=== PATIENT | female | born 1960 | race Caucasian/White ===

== ENCOUNTER 2022-04-24 19:04 | Emergency (ER) | payer OTHER, SELFPAY ==
--- NOTE | 2022-04-24 19:14 | ED.FEMALEGU ---
HPI - Female Genitourinary General Chief complaint: Urogenital-Female Stated complaint: Thinks kidney infection Time Seen by Provider: 04/24/22 19:14 Source: patient Mode of arrival: Ambulatory Limitations: no limitations History of Present Illness HPI Narrative: This is a 62-year-old female with history of asthma, fibromyalgia and diabetes. Patient states she is had dysuria, urgency and frequency for the past day, she had a tele visit was prescribed Macrobid she would her 1st dose at 5:30 p.m. this evening but then started having some lower flank pain and presents to the ER. She denies fevers or chills. No new cold cough or congestion. No increasing chest pain or shortness of breath. No nausea or vomiting. Patient denies any new changes to bowel movement she states she often has diarrhea alternating with constipation. No black or bloody stools. No vaginal bleeding or discharge. Patient has a sense of incomplete emptying with her bladder, frequency, urgency and stress incontinence. Patient also notes that she has a large bruise on her left arm that she would like checked out. She states she lives in an cabinet that she asked to open and hold up fell onto her left forearm about a week ago, was stuck for a couple minutes before she could lifted up she had very large bruise and lump the bruise is starting to go away but the lump while getting smaller is not going away as quickly. She states she would trouble moving her fingers for a couple minutes initially afterwards but has normal movement and sensation since. Patient states she does not tolerate pain medications well. She is given a prescription for Macrobid 100 mg b.i.d. for 5 days, she has had 1 dose. Related Data Previous Rx's Medication Instructions Recorded nitrofurantoin 100 mg PO BID #10 caps 04/24/22 monohydrate/macrocrystals 100 mg capsule (Macrobid) phenazopyridine 100 mg tablet 100 mg PO TID PRN pain #6 tabs 04/24/22 (Pyridium) Review of Systems Review of Systems ROS Unobtainable: All systems reviewed & are unremarkable except as noted in HPI and below Exam Narrative Exam Narrative: GENERAL: Alert and oriented x three, female in mild distress. Patient is sitting in chair. HEENT: Head normocephalic, atraumatic, EOMI, pupils reactive, face symmetric, moist mucous membranes NECK: Supple, full range of motion CARDIOVASCULAR: Regular rate and rhythm without murmurs, rubs or gallops. RESPIRATORY: Breath sounds equal bilaterally, no wheezes rales or rhonchi. ABDOMEN: Soft, nontender. Normoactive bowel sounds all 4 quadrants. No guarding or rebound, rigidity, no mass : No CVA tenderness EXTREMITIES: Normal range of motion, no clubbing or edema. Neurovascularly intact. Patient has large area of swelling that is firm that is purple discoloration over the underside of the forearm surrounded by ecchymosis that is greenish and starting to fade. Only very mildly tender to touch. Patient has normal range of motion. Normal sensation. 2+ radial pulses. No warmth, erythema, no bogginess or fluctuance. NEUROLOGICAL: Cranial nerves II through XII grossly intact. Moving all extremities SKIN: Warm, dry, no petechiae, no rashes or lesions. Initial Vital Signs Initial Vital Signs: Vital Signs Temperature 96.8 F L 04/24/22 19:15 Pulse Rate 80 04/24/22 19:15 Respiratory Rate 16 04/24/22 19:15 Blood Pressure 142/78 H 04/24/22 19:15 Pulse Oximetry 96 04/24/22 19:15 Oxygen Delivery Method 04/24/22 19:15 Course Orders Ordered: ED Orders 04/24/22 19:24 Urine Culture Stat Urine Microscopic Stat Vital Signs Vital signs: Vital Signs - 8 hr 04/24/22 19:15 Temperature 96.8 F L Pulse Rate 80 Respiratory Rate 16 Blood Pressure 142/78 H Pulse Oximetry 96 Oxygen Delivery Method Room Air MDM - Female Genitourinary Lab Data Labs: Lab Results 04/24/22 Range/Units 19:10 Urine RBC 30-100/hpf H (0-5/HPF) Urine WBC 10-30/hpf H (0-5/HPF) Ur Squamous Epith Cells 0-1 /hpf (0-5/HPF) Urine Bacteria Moderate (10-30) H (None) Urine Dip Bedside Urine Glucose 500 mg/dl Bedside Urine Bilirubin - Negative Bedside Urine Ketone ++ 40 Bedside Urine Occult Blood ++ Bedside Urine Protein + 30 Bedside Urine Urobilinogen - Negative Bedside Urine Nitrite - Negative Bedside Urine Leukocytes +/- 15 Esterase MDM Narrative Medical decision making narrative: This is a 62-year-old female with clinically UTI, she has ketones, leuks in her urine and no nitrates. Sent for micro. Discussed with patient because she is having some increased sling pain would give her maybe increased length of her prescription but have her continue her Macrobid this seems appropriate. Patient's change on her forearm appears to be a hematoma we discussed can do heat to the affected area but time will help to resolve this. Discharge Plan Departure Patient Disposition: Home Clinical Impression: Urinary tract infection Instructions: DI for Urinary Tract Infection (UTI) Activity Restrictions/Additional Instructions: Your urine today is suspicious for infection. Please continue the Macrobid, typically takes 24 hours to 48 hours for significant improvement of symptoms. A prescription to extend your macrobid for several more days is included. You can use azo or Pyridium 1 tablet every 8 hours as needed for burning or frequency and bladder spasm. This medication will make her urine bright orange. Prescription sent to [facility] in [place] Please return for fevers, rapidly worsening pain, persistent vomiting, inability to urinate or other new or concerning changes. Prescriptions: New nitrofurantoin monohyd/m-cryst [Macrobid] 100 mg capsule 100 mg PO BID Qty: 10 0RF Rx Instructions: must administer with a meal/food phenazopyridine [Pyridium] 100 mg tablet 100 mg PO TID PRN (Reason: pain) Qty: 6 0RF Referrals: Taylor Pérez PA-C [Primary Care Provider] - Visit Report Forms: Patient Portal/API
[2022-04-24 19:15] VITALS: BP 142/78; PULSE 80; RESP 16; TEMP 36; O2SAT 96; BMI 23.6
--- NOTE | 2022-04-24 19:49 | PC.NURSE ---
Patient was evaluated and discharged by provider prior to nursing assessment.
[2022-04-24 19:59] LABS: Bacteria Urine Moderate (10-30); RBC Urine 30-100/HPF (0-5/HPF); Squamous Epithelial Cell Urine 0-1 /HPF (0-5/HPF); WBC Urine 10-30/HPF (0-5/HPF)
== END 2022-04-24 19:50 | disposition home or self-care (01) ==
PROVIDERS: Emergency Provider Emergency Medicine; PCP Physician Assistant
DX: N39.0 Urinary tract infection, site not specified (principal); R10.30 Lower abdominal pain, unspecified
CPT/HCPCS: 81003; 81015; 87086; 99282

== ENCOUNTER 2023-01-20 17:16 | Emergency (ER) | payer OTHER, SELFPAY ==
[2023-01-20] VITALS (14 sets, daily range): BP systolic 127–173; BP diastolic 74–88; PULSE 58–70; RESP 11–30; TEMP 36.4–36.5; O2SAT 96–100; BMI 36.2
[2023-01-20 17:51] LABS: Add Manual Diff / Slide Review NO; Alanine Aminotransferase 40 IU/L (<35); Albumin 4.5 g/dL (3.5-5.0); Albumin Globulin Ratio 1.6 (1.0-2.8); Alkaline Phosphatase 50 U/L (38-126); Aspartate Aminotransferase 30 IU/L (14-36); BUN Creatinine Ratio 15.3 (6-22); Basophils Absolute Auto 100 /uL (0-100); Basophils Percent Auto 1.3 % (0-2); Blood Urea Nitrogen 13 mg/dL (7-17); Calcium 9.6 mg/dL (8.4-10.2); Carbon Dioxide 19 mmol/L (22-32); Chloride 108 mmol/L (98-107); Eosinophils Absolute Auto 200 /uL (0-450); Eosinophils Percent Auto 2.8 % (2-4); Estimated Glomerular Filt Rate > 60 mL/min (>60); Globulin 2.9 g/dL (1.7-4.1); Glucose 189 mg/dL (80-110); HEMOLYSIS 15 (0-50); Hematocrit 44.2 % (36-46); Hemoglobin 15.1 g/dL (12.0-16.0); Lipase 121 U/L (23-300); Lymphocytes Absolute Auto 2600 /uL (1100-4500); Lymphocytes Percent Auto 37.1 % (25-40); Mean Corpuscular Hemoglobin 26.4 PG (26-34); Mean Corpuscular Volume 77.6 fL (80-100); Monocytes Absolute Auto 400 /uL (0-900); Monocytes Percent Auto 6.3 % (3-14); Neutrophils Absolute Auto 3700 /uL (1500-7000); Neutrophils Percent Auto 52.5 % (50-75); Platelet Count 212 X10^3/uL (150-400); Potassium 3.7 mmol/L (3.4-5.1); Red Cell Distribution Width 13.5 % (11.6-14.8); Sodium 139 mmol/L (137-145); Total Protein 7.4 g/dL (6.3-8.2); White Blood Cell Count 7.1 X10^3/uL (4.5-11.0)
[2023-01-20 18:07] LABS: Ethanol (ETOH) < 10 mg/dL
--- NOTE | 2023-01-20 18:12 | ED_ITS ---
HPI - General Adult General Chief complaint: Weakness Stated complaint: Dizzy/Weak Time Seen by Provider: 01/20/23 17:37 Source: patient and EMS Mode of arrival: EMS History of Present Illness HPI narrative: 62-year-old female nonsmoker with fibromyalgia presents by EMS for evaluation of generalized fatigue and dizziness that is worse than normal. She states that she is been having troubles very similar to this more often than not so she had COVID in 2021. She frequently has headaches and dizziness and is generally fatigued. She has seen her doctors on multiple occasions and is scheduled for an outpatient MRI. She states that she just felt a bit worse than normal today's of wanted to get checked out. She has a generalized headache that is about a 3/10. There is no obvious provocation or palliation. She denies blurred vision or trouble with speech. She denies any neck or back pain and has had no fever or chills. She denies any trauma or injury and takes no blood thinners. She denies chest pain or shortness of breath. She is had a bit of a poor appetite. She becomes fatigued with much exertion and is a bit dizzy when she stands. Related Data Previous Rx's Medication Instructions Recorded nitrofurantoin 100 mg PO BID #10 caps 04/24/22 monohydrate/macrocrystals 100 mg capsule (Macrobid) phenazopyridine 100 mg tablet 100 mg PO TID PRN pain #6 tabs 04/24/22 (Pyridium) Review of Systems Review of Systems Narrative: GENERAL: See HPI HEENT: Denies sinus pain, ear pain, sore throat, difficulty swallowing, dizziness. RESPIRATORY: Denies dyspnea, cough, wheezing, hemoptysis, sputum. CARDIOVASCULAR: Denies chest pain, palpitations, orthopnea, edema, GASTROINTESTINAL: Denies nausea, vomiting, abdominal pain, diarrhea, constipation, melena. : Denies dysuria, frequency, incontinence, hematuria, urinary retention. MUSCULOSKELETAL: denies weakness, joint pain, or bony pain SKIN: Denies rash, skin lesions, or other NEUROLOGIC: See HPI PSYCHIATRIC: No concerning psychosocial issues. 12 point review of systems is negative except for those stated above Patient History Social History Smoking Status: Never smoker Smoking Status: Never smoker alcohol intake frequency: other Substance Use Type: does not use Exam Narrative Exam Narrative: GENERAL: [62] year old patient appears stated age. Well-developed patient, in mild distress. HEAD: Atraumatic. Normocephalic. EYES: Pupils equal round and reactive. Extraocular motions intact. No scleral icterus. No injection or drainage. ENT: Nose without bleeding, purulent drainage. Throat without erythema, tonsillar hypertrophy or exudate. Airway patent. NECK: Trachea midline. Non tender, no meningeal signs CARDIOVASCULAR: Regular rate and rhythm without murmurs, gallops, or rubs. RESPIRATORY: Clear to auscultation. Breath sounds equal bilaterally. No wheezes, rales, or rhonchi. GASTROINTESTINAL: Abdomen soft, non-tender, nondistended. EXTREMITIES: No edema or joint tenderness. BACK: Nontender without deformity or crepitance. No flank tenderness. NEURO: AOx3. SKIN: No rash or erythema of visible areas NIH Stroke Scale 1a. LOC: Patient is alert and keenly responsive (0) 1b. LOC Questions: Patient answers both LOC questions accurately (0) 1c. LOC Commands: Patient performs both tasks correctly (0) 2. Best Gaze: Normal (0) 3. Visual: No visual loss (0) 4. Facial palsy: Normal symmetrical movements (0) 5. Motor arm: No drift (0) 6. Motor leg: No drift (0) 7. Limb ataxia: Absent (0) 8. Sensory: Normal (0) 9. Best language: No aphasia; normal (0) 10. Dysarthria: Normal (0) 11. Extinction and inattention: No abnormality (0) NIHSS: 0 Initial Vital Signs Initial Vital Signs: Vital Signs Temperature 97.7 F 01/20/23 17:20 Pulse Rate 68 01/20/23 17:20 Respiratory Rate 30 H 01/20/23 17:20 Blood Pressure 132/88 01/20/23 17:20 Pulse Oximetry 100 01/20/23 17:20 Oxygen Delivery Method Room Air 01/20/23 17:20 Course Orders Ordered: ED Orders 01/20/23 21:22 CT head/brain wo con Stat Discontinued Medications Sodium Chloride (Normal Saline 0.9%) 1,000 mls @ 1,000 mls/hr IV BOLUS PRN PRN Reason: Fluid replacement Last Infusion: 01/20/23 22:35 Dose: 0 mls/hr Documented By: Admin: 09/14/23 21:36 Dose: 1,000 mls/hr Documented By: JOMAR Ketorolac Tromethamine (Ketorolac 30 Mg/Ml Vial) 15 mg IV NOW ONE Stop: 01/20/23 21:23 Last Admin: 01/20/23 21:35 Dose: 15 mg Documented By: JOMAR Vital Signs Vital signs: Vital Signs - 8 hr 01/20/23 19:30 01/20/23 19:30 01/20/23 20:00 Temperature Pulse Rate 69 Respiratory Rate 13 Blood Pressure 143/82 H 132/74 Pulse Oximetry 96 01/20/23 20:00 01/20/23 20:30 01/20/23 20:30 Temperature Pulse Rate 66 64 Respiratory Rate 11 L 14 Blood Pressure 127/75 Pulse Oximetry 98 98 01/20/23 21:00 01/20/23 21:00 01/20/23 21:30 Temperature Pulse Rate 63 61 Respiratory Rate 18 14 Blood Pressure 134/75 Pulse Oximetry 97 97 01/20/23 21:31 01/20/23 21:31 01/20/23 22:00 Temperature Pulse Rate 58 L 62 Respiratory Rate 26 H 12 Blood Pressure 163/77 H Pulse Oximetry 98 96 01/20/23 22:02 01/20/23 22:02 01/20/23 22:30 Temperature Pulse Rate 60 61 Respiratory Rate 14 12 Blood Pressure 173/83 H Pulse Oximetry 97 96 01/20/23 23:00 01/20/23 23:10 Temperature 97.6 F Pulse Rate 62 Respiratory Rate 14 Blood Pressure Pulse Oximetry 97 Medical Decision Making Lab Data 01/20/23 17:15 01/20/23 17:15 Labs: Lab Results 01/20/23 01/20/23 01/20/23 Range/Units 17:15 17:15 17:15 WBC 7.1 (4.5-11.0) X10^3/uL RBC 5.70 H (4.0-5.2) X10^6/uL Hgb 15.1 (12.0-16.0) g/dL Hct 44.2 (36-46) % MCV 77.6 L (80-100) fL MCH 26.4 (26-34) PG MCHC 34.0 (30-36) % RDW 13.5 (11.6-14.8) % Plt Count 212 (150-400) X10^3/uL Neut % (Auto) 52.5 (50-75) % Lymph % (Auto) 37.1 (25-40) % [place] % (Auto) 6.3 (3-14) % Eos % (Auto) 2.8 (2-4) % Baso % (Auto) 1.3 (0-2) % Neut # (Auto) 3700 (7054-5033) /uL Lymph # (Auto) 2600 (5750-7408) /uL [place] # (Auto) 400 (0-900) /uL Eos # (Auto) 200 (0-450) /uL Baso # (Auto) 100 (0-100) /uL Sodium 139 (137-145) mmol/L Potassium 3.7 (3.4-5.1) mmol/L Chloride 108 H (98-107) mmol/L Carbon Dioxide 19 L (22-32) mmol/L BUN 13 (7-17) mg/dL Creatinine 0.85 (0.52-1.04) mg/dL Estimated GFR > 60 (>60) mL/min BUN/Creatinine Ratio 15.3 (6-22) Glucose 189 H (80-110) mg/dL Calcium 9.6 (8.4-10.2) mg/dL Total Bilirubin 1.0 (0.2-1.3) mg/dL AST 30 (14-36) IU/L ALT 40 H (<35) IU/L Alkaline Phosphatase 50 (38-126) U/L Total Creatine Kinase (30-135) U/L Troponin I (0.01-0.034) ng/mL Total Protein 7.4 (6.3-8.2) g/dL Albumin 4.5 (3.5-5.0) g/dL Globulin 2.9 (1.7-4.1) g/dL Albumin/Globulin Ratio 1.6 (1.0-2.8) Lipase 121 (23-300) U/L U Opiates 300ng/mL cut (Negative) Ur Oxycodone Screen (Negative) Urine Methadone Screen (Negative) Ur Barbiturates Screen (Negative) U Tricyclic Antidepress (Negative) Ur Phencyclidine Scrn (Negative) Ur Amphetamines Screen (Negative) U Methamphetamines Scrn (Negative) Ur MDMA Scrn (Ecstasy) (Negative) U Benzodiazepines Scrn (Negative) Urine Cocaine Screen (Negative) U Marijuana (THC) Screen (Negative) Ethyl Alcohol < 10 ( - 10) mg/dL 01/20/23 01/20/23 Range/Units 17:30 17:38 WBC (4.5-11.0) X10^3/uL RBC (4.0-5.2) X10^6/uL Hgb (12.0-16.0) g/dL Hct (36-46) % MCV (80-100) fL MCH (26-34) PG MCHC (30-36) % RDW (11.6-14.8) % Plt Count (150-400) X10^3/uL Neut % (Auto) (50-75) % Lymph % (Auto) (25-40) % [place] % (Auto) (3-14) % Eos % (Auto) (2-4) % Baso % (Auto) (0-2) % Neut # (Auto) (3660-1459) /uL Lymph # (Auto) (2385-6798) /uL [place] # (Auto) (0-900) /uL Eos # (Auto) (0-450) /uL Baso # (Auto) (0-100) /uL Sodium (137-145) mmol/L Potassium (3.4-5.1) mmol/L Chloride (98-107) mmol/L Carbon Dioxide (22-32) mmol/L BUN (7-17) mg/dL Creatinine (0.52-1.04) mg/dL Estimated GFR (>60) mL/min BUN/Creatinine Ratio (6-22) Glucose (80-110) mg/dL Calcium (8.4-10.2) mg/dL Total Bilirubin (0.2-1.3) mg/dL AST (14-36) IU/L ALT (<35) IU/L Alkaline Phosphatase (38-126) U/L Total Creatine Kinase 61 (30-135) U/L Troponin I < 0.012 (0.01-0.034) ng/mL Total Protein (6.3-8.2) g/dL Albumin (3.5-5.0) g/dL Globulin (1.7-4.1) g/dL Albumin/Globulin Ratio (1.0-2.8) Lipase (23-300) U/L U Opiates 300ng/mL cut Negative (Negative) Ur Oxycodone Screen Negative (Negative) Urine Methadone Screen Negative (Negative) Ur Barbiturates Screen Negative (Negative) U Tricyclic Antidepress Negative (Negative) Ur Phencyclidine Scrn Negative (Negative) Ur Amphetamines Screen Negative (Negative) U Methamphetamines Scrn Negative (Negative) Ur MDMA Scrn (Ecstasy) Negative (Negative) U Benzodiazepines Scrn Negative (Negative) Urine Cocaine Screen Negative (Negative) U Marijuana (THC) Screen Negative (Negative) Ethyl Alcohol ( - 10) mg/dL Urine Dip Bedside Urine Glucose 1000 mg/dl Bedside Urine Bilirubin - Negative Bedside Urine Ketone - Negative Urine Specific Leslie 1.01 Bedside Urine Occult Blood - Negative Bedside Urine pH 6.0 Bedside Urine Protein - Negative Bedside Urine Urobilinogen - Negative Bedside Urine Nitrite - Negative Bedside Urine Leukocytes - Negative Esterase Point of care testing: Urine Dip Bedside Urine Glucose 1000 mg/dl Bedside Urine Bilirubin - Negative Bedside Urine Ketone - Negative Urine Specific Leslie 1.01 Bedside Urine Occult Blood - Negative Bedside Urine pH 6.0 Bedside Urine Protein - Negative Bedside Urine Urobilinogen - Negative Bedside Urine Nitrite - Negative Bedside Urine Leukocytes - Negative Esterase MDM Narrative Medical decision making narrative: [62] year old patient presents with chronic headaches Headache considerations include, but not limited to: Subarachnoid hemorrhage, but unlikely as patient denies sudden onset of pain, not worst of life, or neck pain Meningitis considered, but thought unlikely given lack of Brudzinski's, Kernig's sign, altered mental status or fever Giant cell arteritis considered, but thought unlikely given lack of unilateral findings, pain in denominational, vision change HTN Emergency considered, but thought unlikely given normal vitals Other serious diagnoses considered unlikely given lack of red flag findings such as sudden onset, increasing frequency, immunocompromise, systemic signs (fever, chills, stiff neck, or rash), focal neurologic findings, trauma, blood thinners, etc. Prior Charts reviewed in our EMR Primary Historian: patient Labs reviewed and interpreted by myself: No significant lab abnormality Imaging reviewed: Head CT without acute findings Patient's symptoms improved over duration of stay with above-stated therapies. Findings and discharge diagnosis discussed with patient/family followed by verbalization of understanding Return precautions discussed with patient/family whom verbalize understanding of diagnosis and plan Discharge Plan Departure Patient Disposition: Home Clinical Impression: Fatigue, Weakness, Chronic headaches Activity Restrictions/Additional Instructions: *You have been diagnosed with [multiple symptoms, possibly consequence of long COVID syndrome. As we discussed your history and physical exam, labs and imaging are reassuring] *What to do: *Please continue to take your regular medications as directed. [ ] New medication prescriptions sent to your pharmacy: [ ] [ ] New medication written as a paper prescription [ ] No new medications given *Please follow up with your primary care provider in 2-3 days, call for an appointment. Let them know you were seen in the Emergency Department and that we ask that you be seen in follow up. We will electronically transmit a record of today's note if your PCP is in our system *If you do not have a primary care provider please contact the [facility] Resource line at [phone]. They will ask some questions about your medical history and help get you set up with a doctor in the community. *Return to Emergency Department if you should have any new, worsening or concerning symptoms, such as [fever greater than 101 F, shaking chills, worsening pain, persistent vomiting or other bothersome symptoms] Prescriptions: No Action nitrofurantoin monohyd/m-cryst [Macrobid] 100 mg capsule 100 mg PO BID Qty: 10 0RF Rx Instructions: must administer with a meal/food phenazopyridine [Pyridium] 100 mg tablet 100 mg PO TID PRN (Reason: pain) Qty: 6 0RF Referrals: Taylor Pérez PA-C [Primary Care Provider] - Stand Alone Forms: Patient Portal/API
[2023-01-20 18:13] LABS: UR Morphine/Opiate cutoff 300 Negative (Negative); Ur Creatinine Normal (Normal); Ur Specific Gravity Normal (Normal); Urine Amphetamines Negative (Negative); Urine Barbiturates Negative (Negative); Urine Benzodiazepines Negative (Negative); Urine Cocaine Negative (Negative); Urine MDMA Negative (Negative); Urine Methadone Negative (Negative); Urine Methamphetamines Negative (Negative); Urine Oxycodone Negative (Negative); Urine Phencyclidine Negative (Negative); Urine Tetrahydrocannabinol Negative (Negative); Urine Tricyclic Antidepressant Negative (Negative); Urine pH Normal (Normal)
[2023-01-20 18:18] LABS: Creatine Kinase 61 U/L (30-135)
[2023-01-20 18:31] LABS: Troponin I < 0.012 ng/mL (0.01-0.034)
--- NOTE | 2023-01-20 21:22 | DI.CT.S_ITS ---
PROCEDURE: CT HEAD/BRAIN WO CON INDICATIONS: headaches and dizziness TECHNIQUE: Noncontrast 4.5 mm thick angled axial sections acquired from the foramen magnum to the vertex, with coronal and sagittal reformats. For radiation dose reduction, the following was used: automated exposure control, adjustment of mA and/or kV according to patient size. COMPARISON: None. FINDINGS: Image quality: Excellent. CSF spaces: Basal cisterns are patent. No extra-axial fluid collections. Ventricles are normal in size and shape. Brain: No intracranial hemorrhage, mass, or mass effect. Bustamante-white matter interface appears preserved. Skull and face: Calvarium and visualized facial bones are intact, without suspicious lesions. Sinuses: Visualized sinuses demonstrate mild mucosal thickening within the ethmoid sinuses. Mastoid air cells are clear. IMPRESSION: 1. No acute intracranial abnormality. Dictated by: Kelvin Chandler M.D. on 01/20/2023 at 22:21 Approved by: Kelvin Chandler M.D. on 01/20/2023 at 22:22
[2023-01-20] MEDS: KETOROLAC 30 MG/ML VIAL 15 MG IV (21:35)
[2023-01-20] MEDS: SODIUM CHLORIDE 0.9% 1,000 ML 1000 ML IV (21:36)
== END 2023-01-20 23:11 | disposition home or self-care (01) ==
PROVIDERS: Emergency Medicine; Emergency Provider Emergency Medicine; PCP Physician Assistant
DX: R53.1 Weakness (principal); R53.83 Other fatigue; R51.9 Headache, unspecified
CPT/HCPCS: 36415; 70450; 80053; 80305; 80320; 81003; 82550; 83690; 84484; 85025; 93005; 93010; 96361; 96374; 99284; J1885

== ENCOUNTER 2023-11-30 15:21 | Emergency (ER) | payer OTHER, SELFPAY ==
[2023-11-30] VITALS (9 sets, daily range): BP systolic 119–154; BP diastolic 63–80; PULSE 87–97; RESP 13–23; TEMP 36.8; O2SAT 93–99; BMI 32.1
--- NOTE | 2023-11-30 15:28 | ED_ITS ---
HPI - General Adult General Chief complaint: Weakness Stated complaint: Weakness/N/N[place] Time Seen by Provider: 11/30/23 15:26 History of Present Illness HPI narrative: 63-year-old female presents by EMS from home for cough, congestion, generalized weakness. History of fibromyalgia. Symptoms began yesterday, worse today. Patient states she feels generally weak all over. Taking [id number] cough and cold medication for symptoms without significant relief. Related Data Previous Rx's Medication Instructions Recorded nitrofurantoin 100 mg PO BID #10 caps 04/24/22 monohydrate/macrocrystals 100 mg capsule (Macrobid) phenazopyridine 100 mg tablet 100 mg PO TID PRN pain #6 tabs 04/24/22 (Pyridium) Allergies Allergy/AdvReac Type Severity Reaction Status Date / Time No Known Drug Allergies Allergy Verified 11/30/23 15:52 Patient History Social History Smoking Status: Never smoker Smoking Status: Never smoker alcohol intake frequency: other Substance Use Type: does not use Exam Initial Vital Signs Initial Vital Signs: Vital Signs Temperature 98.3 F 11/30/23 15:27 Pulse Rate 94 H 11/30/23 15:27 Respiratory Rate 18 11/30/23 15:27 Blood Pressure 154/65 H 11/30/23 15:27 Pulse Oximetry 99 11/30/23 15:27 Oxygen Delivery Method Room Air 11/30/23 15:27 Const: Awake, alert, no acute distress Cardiac: regular rate, regular rhythm RESP: unlabored, clear bilaterally, no wheezing GI: Soft, nontender, nondistended, no rebound, no guarding MSK: Atraumatic, full range of motion, pulses equal Skin: Warm, Dry, intact, no rashes Neuro: AO x3, CN II-XII grossly intact, moves all extremities Course Orders Ordered: Discontinued Medications Sodium Chloride (Normal Saline 0.9%) 1,000 mls @ 1,000 mls/hr IV BOLUS ONE Stop: 11/30/23 16:26 Last Infusion: 11/30/23 17:43 Dose: Infused Documented By: Admin: 11/30/23 15:52 Dose: 1,000 mls/hr Documented By: RB Ketorolac Tromethamine (Ketorolac 30 Mg/Ml Vial) 15 mg IV NOW ONE Stop: 11/30/23 15:28 Last Admin: 11/30/23 16:09 Dose: 15 mg Documented By: DKTrae Vital Signs Vital signs: Vital Signs - 8 hr 11/30/23 15:27 Temperature 98.3 F Pulse Rate 94 H Respiratory Rate 18 Blood Pressure 154/65 H Pulse Oximetry 99 Oxygen Delivery Method Room Air Medical Decision Making Differential Diagnosis Differential Diagnosis: Viral syndrome, COVID, generalized weakness Lab Data 11/30/23 15:50 11/30/23 15:50 Labs: Lab Results 11/30/23 11/30/23 11/30/23 Range/Units 15:35 15:40 15:50 WBC 9.0 (4.5-11.0) X10^3/uL RBC 5.91 H (4.0-5.2) X10^6/uL Hgb 15.7 (12.0-16.0) g/dL Hct 46.7 H (36-46) % MCV 79.0 L (80-100) fL MCH 26.6 (26-34) PG MCHC 33.6 (30-36) % RDW 13.7 (11.6-14.8) % Plt Count 182 (150-400) X10^3/uL Neut % (Auto) 86.8 H (50-75) % Lymph % (Auto) 6.3 L (25-40) % [place] % (Auto) 6.3 (3-14) % Eos % (Auto) 0.1 L (2-4) % Baso % (Auto) 0.5 (0-2) % Neut # (Auto) 7800 H (6039-4042) /uL Lymph # (Auto) 600 L (6102-6190) /uL [place] # (Auto) 600 (0-900) /uL Eos # (Auto) 0 (0-450) /uL Baso # (Auto) 0 (0-100) /uL Sodium 139 (137-145) mmol/L Potassium 4.2 (3.4-5.1) mmol/L Chloride 107 (98-107) mmol/L Carbon Dioxide 18 L (22-32) mmol/L BUN 17 (7-17) mg/dL Creatinine 1.06 H (0.52-1.04) mg/dL Estimated GFR 58 L (>60) mL/min BUN/Creatinine Ratio 16.0 (6-22) Glucose 182 H (80-110) mg/dL Calcium 9.3 (8.4-10.2) mg/dL Total Bilirubin 1.5 H (0.2-1.3) mg/dL AST 29 (14-36) IU/L ALT 40 H (<35) IU/L Alkaline Phosphatase 64 (38-126) U/L Total Protein 8.1 (6.3-8.2) g/dL Albumin 5.0 (3.5-5.0) g/dL Globulin 3.1 (1.7-4.1) g/dL Albumin/Globulin Ratio 1.6 (1.0-2.8) Urine Color Yellow Urine Appearance Clear Urine pH 5.0 (4.5-8.0) Ur Specific [place] 1.010 (1.000-1.035) Urine Protein Negative (Negative) Urine Glucose (UA) 3+ H (Negative) g/dL Urine Ketones 3+ H (NEGATIVE) Urine Occult Blood 1+ H (Negative) Urine Nitrate Negative (Negative) Urine Bilirubin Negative (NEGATIVE) Urine Urobilinogen 0.2 (0.2) E.U./dL Ur Leukocyte Esterase Negative (NEGATIVE) Urine RBC 0-1/hpf D (0-5/HPF) Urine WBC 0-1/hpf (0-5/HPF) Ur Squamous Epith Cells 1-5 /hpf (0-5/HPF) Urine Bacteria Occasional (0-1) (None) Urine Mucus 1+ H (Negative) Ur Culture Indicated? Cult not indicated Vol Urine Centrifuged 10ml (spun) Chlamy pneumoniae PCR Not detected (Not Detect) Adenovirus (PCR) Not detected (Not Detect) B.parapertussis DNA PCR Not detected (Not Detecte) Coronavirus OC43 (PCR) Not detected (Not Detect) Coronavirus HKU1 (PCR) Not detected (Not Detect) Coronavirus 229E (PCR) Not detected (Not Detect) SARS-CoV-2 (PCR) Detected H (Not Detecte) Coronavirus NL63 (PCR) Not detected (Not Detect) Human Metapneumovir PCR Not detected (Not Detect) Influenza Type A (PCR) Not detected (Not Detect) Influenza Type B (PCR) Not detected (Not Detect) M. pneumoniae (PCR) Not detected (Not Detect) Parainfluenza 1 (PCR) Not detected (Not Detect) Parainfluenza 2 (PCR) Not detected (Not Detect) Parainfluenza 3 (PCR) Not detected (Not Detect) Parainfluenza 4 (PCR) Not detected (Not Detect) RSV (PCR) Not detected (Not Detect) Entero/Rhino (PCR) Not detected (Not Detect) Imaging Data Chest x-ray: Radiologist's Impression: PROCEDURE: XR CHEST 1V INDICATIONS: WEAKNESS, COUGH TECHNIQUE: One view of the chest was acquired. COMPARISON: Chest radiograph on June 21, 2023. FINDINGS: Surgical changes and devices: None. Lungs and pleura: Lungs are clear. No pleural effusions or pneumothorax. Mediastinum: Mediastinal contours appear normal. Heart size is normal. Bones and chest wall: No suspicious bony lesions. Overlying soft tissues appear unremarkable. IMPRESSION: No acute cardiopulmonary process. Dictated by: Taurus Perrin M.D. on 11/30/2023 at 16:43 Approved by: Tuarus Perrin M.D. on 11/30/2023 at 16:43 MDM Narrative Additional Information: Nontoxic patient presenting for generalized symptoms, cough and congestion. Physical exam is unremarkable. Toradol and IV fluids ordered. Laboratory work is reviewed, no significant abnormalities identified. Patient did test positive for COVID-19. Creatinine 1.06, up from 0.85 1 year prior. Urinalysis with 3+ ketones and 3+ glucose. No evidence of infection. Patient reassessed, she states she feels better after receiving Toradol and IV fluids. Patient counseled on her COVID-19 results, recommended continued fluid hydration, close follow up with PCP. Discharge Plan Departure Patient Disposition: Home Clinical Impression: Cough, COVID-19 Instructions: DI for Viral Upper Respiratory Infection -- Adult Activity Restrictions/Additional Instructions: Your laboratory work today showed that you may have some very mild dehydration, you has been given a L of IV fluids here. You did test positive for COVID-19, but your chest x-ray did not show any pneumonia or other concerning findings. Take Tylenol and ibuprofen as needed for pain or discomfort, make sure to stay hydrated by drinking plenty of fluids, follow up with your primary care doctor. Prescriptions: No Action nitrofurantoin monohyd/m-cryst [Macrobid] 100 mg capsule 100 mg PO BID Qty: 10 0RF Rx Instructions: must administer with a meal/food phenazopyridine [Pyridium] 100 mg tablet 100 mg PO TID PRN (Reason: pain) Qty: 6 0RF Referrals: Taylor Pérez PA-C [Primary Care Provider] - Stand Alone Forms: Patient Portal/API
[2023-11-30 15:45] LABS: Appearance Urine UA CLEAR; Bilirubin Urine UA NEGATIVE (NEGATIVE); Color Urine UA YELLOW; Glucose Urine UA 3+ g/dL (Negative); Ketones Urine UA 3+ (NEGATIVE); Leukocyte Esterase Urine UA NEGATIVE (NEGATIVE); Nitrite Urine UA NEGATIVE (Negative); Occult Blood Urine UA 1+ (Negative); Protein Urine UA NEGATIVE (Negative); Urobilinogen Urine UA 0.2 E.U./dL (0.2)
[2023-11-30 15:52] LABS: Bacteria Urine Occasional (0-1); Culture Indicated Urine Cult Not Indicated; Mucus Urine 1+ (Negative); RBC Urine 0-1/HPF (0-5/HPF); Squamous Epithelial Cell Urine 1-5 /HPF (0-5/HPF); Urine Volume 10mL (spun); WBC Urine 0-1/HPF (0-5/HPF)
[2023-11-30] MEDS: SODIUM CHLORIDE 0.9% 1,000 ML 1000 ML IV (15:52)
[2023-11-30 15:58] LABS: Add Manual Diff / Slide Review NO; Basophils Absolute Auto 0 /uL (0-100); Basophils Percent Auto 0.5 % (0-2); Eosinophils Absolute Auto 0 /uL (0-450); Eosinophils Percent Auto 0.1 % (2-4); Hematocrit 46.7 % (36-46); Hemoglobin 15.7 g/dL (12.0-16.0); Lymphocytes Absolute Auto 600 /uL (1100-4500); Lymphocytes Percent Auto 6.3 % (25-40); Mean Corpuscular HGB Conc 33.6 % (30-36); Mean Corpuscular Hemoglobin 26.6 PG (26-34); Monocytes Absolute Auto 600 /uL (0-900); Monocytes Percent Auto 6.3 % (3-14); Neutrophils Absolute Auto 7800 /uL (1500-7000); Neutrophils Percent Auto 86.8 % (50-75); Platelet Count 182 X10^3/uL (150-400); Red Blood Cell Count 5.91 X10^6/uL (4.0-5.2); Red Cell Distribution Width 13.7 % (11.6-14.8)
[2023-11-30] MEDS: KETOROLAC 30 MG/ML VIAL 15 MG IV (16:09)
[2023-11-30 16:11] LABS: Alanine Aminotransferase 40 IU/L (<35); Albumin Globulin Ratio 1.6 (1.0-2.8); Alkaline Phosphatase 64 U/L (38-126); Aspartate Aminotransferase 29 IU/L (14-36); Bilirubin Total 1.5 mg/dL (0.2-1.3); Blood Urea Nitrogen 17 mg/dL (7-17); Calcium 9.3 mg/dL (8.4-10.2); Carbon Dioxide 18 mmol/L (22-32); Chloride 107 mmol/L (98-107); Estimated Glomerular Filt Rate 58 mL/min (>60); Globulin 3.1 g/dL (1.7-4.1); Glucose 182 mg/dL (80-110); HEMOLYSIS 47 (0-50); Potassium 4.2 mmol/L (3.4-5.1); Sodium 139 mmol/L (137-145); Total Protein 8.1 g/dL (6.3-8.2)
[2023-11-30 16:44] LABS: Adenovirus Not Detected (Not Detect); B. parapertussis Not Detected (Not Detecte); Bordetella pertussis Not Detected (Not Detect); Chlamydophila pneumoniae Not Detected (Not Detect); Coronavirus 229E Not Detected (Not Detect); Coronavirus HKU1 Not Detected (Not Detect); Coronavirus NL 63 Not Detected (Not Detect); Coronavirus OC43 Not Detected (Not Detect); Human Metapneumovirus Not Detected (Not Detect); Human Rhinovirus/Enterovirus Not Detected (Not Detect); Influenza A Not Detected (Not Detect); Influenza B Not Detected (Not Detect); Mycoplasma pneumoniae Not Detected (Not Detect); Parainfluenza Virus 1 Not Detected (Not Detect); Parainfluenza Virus 2 Not Detected (Not Detect); Parainfluenza Virus 3 Not Detected (Not Detect); Parainfluenza Virus 4 Not Detected (Not Detect); Respiratory Syncytial Virus Not Detected (Not Detect)
[2023-11-30 16:52] LABS: SARS- CoV-2 Detected (Not Detecte)
== END 2023-11-30 18:22 | disposition home or self-care (01) ==
PROVIDERS: Emergency Provider Emergency Medicine; PCP Physician Assistant
DX: U07.1 COVID-19 (principal); R05.9 Cough, unspecified
CPT/HCPCS: 36415; 71045; 80053; 81001; 85025; 87633; 96361; 96374; 99284; J1885